=== PATIENT | male | born 1960 | race Hispanic/Latino ===

== ENCOUNTER 2017-07-15 11:04 | Observation (INO) | payer OTHER, BC ==
[2017-07-15 11:19] VITALS: BMI 26.9
[2017-07-15] MEDS ORDERED: Tdap Vaccine 0.5 ml Vial (10-64 yrs) IM ONE ×2 (13:58→15:16)
[2017-07-15] MEDS ORDERED: Bacitracin OINT 15GM TOP STA (14:30)
--- NOTE | 2017-07-15 14:53 | RAD ---
PROCEDURE: Right Hand Radiographs. HISTORY: s/p fall COMPARISON: None. FINDINGS: BONES: Bone alignment and mineralization are normal. There is no acute displaced fracture or bone destruction. JOINTS: Normal. No osteoarthritic changes. SOFT TISSUES: Normal. OTHER FINDINGS: None. IMPRESSION: No acute fracture or dislocation.
--- NOTE | 2017-07-15 15:23 | ED PDOC ---
HPI: Trauma/Fall - HPI Time Seen by Provider: 07/15/17 13:36 Chief Complaint (Nursing): Trauma Chief Complaint (Provider): Facial Injury History Per: Patient History/Exam Limitations: no limitations Onset/Duration Of Symptoms: Hrs Injury Occurred (Timing): Hours Ago: (9:00 pm the night prior to ED arrival) Associated Symptoms: denies: Dizziness, LOC Additional Complaint(s): 57 y/o male presents to the ED with a facial injury s/p fall. Patient was intoxicated when he tripped over a curb at 9:00 pm last night when he fell injuring his facial area and right hand. He complains the pain to his right hand feels like it is "throbbing" and rates it a 5/10 associated with swelling and bruising. Patient also notes deformity to his right third digit. He denies taking any pain medications or blood thinners. Denies LOC, nausea, vomiting, vision change, facial pain, headache, dizziness, abdominal pain, CP, or SOB. Of note, patient is right hand dominant and drinks daily. PMD: none provided - Fall Fall:Prior To Injury: Tripped (over curb while under EtOH influence) Past Medical History Reviewed: Historical Data, Nursing Documentation, Vital Signs Vital Signs: Last Vital Signs Temp 100.3 F H 07/15/17 11:17 Pulse 127 H 07/15/17 11:17 Resp BP 162/90 H 07/15/17 11:17 Pulse Ox 98 07/15/17 11:17 - Medical History PMH: No Chronic Diseases - Surgical History Surgical History: No Surg Hx - Family History Family History: States: No Known Family Hx - Social History Current smoker - smoking cessation education provided: No Ex-Smoker (has not smoked in the last 12 months): No Alcohol: > 2 Drinks/Day Drugs: Denies - Immunization History Hx Tetanus Toxoid Vaccination: No (unknown) - Home Medications Home Medications: Ambulatory Orders Medication Instructions Recorded No Known Home Med 07/15/17 - Allergies Allergies/Adverse Reactions: Allergies Allergy/AdvReac Type Severity Reaction Status Date / Time Penicillins Allergy RASH Verified 07/15/17 12:25 Review of Systems ROS Statement: Except As Marked, All Systems Reviewed And Found Negative Constitutional: Negative for: Other (facial pain) Eyes: Negative for: Vision Change Cardiovascular: Negative for: Chest Pain Respiratory: Negative for: Shortness of Breath Gastrointestinal: Negative for: Nausea, Vomiting, Abdominal Pain Musculoskeletal: Positive for: Hand Pain (right hand injury w/ deformity to the right third digit), Other (right hand injury w/ deformity to right third digit associated with swelling and bruising) Skin: Positive for: Other (facial abrasions due to injury) Neurological: Negative for: Headache, Dizziness, Other (LOC) Physical Exam - Reviewed Nursing Documentation Reviewed: Yes Vital Signs Reviewed: Yes - Physical Exam Appears: Positive for: Well (resting comfortably), Non-toxic, No Acute Distress Head Exam: Positive for: ATRAUMATIC, NORMAL INSPECTION, NORMOCEPHALIC Skin: Negative for: Normal Color (abrasion to nasal bridge and right cheek, superficial with no active bleeding, no surrounding ecchymosis) Eye Exam: Positive for: Normal appearance (TMJ full ROM), EOMI (intact and painless), PERRL (pupils are reactive). Negative for: Periorbital swelling, Periorbital tenderness, Other (no sinus tenderness) ENT: Positive for: Normal ENT Inspection, TM Is/Are (non-bulding, non- erythematous, no hemotympanum). Negative for: Other (no tenderness or swelling to nasal bridge or right cheek, dentition is poor throughout, intact and non- tender) Neck: Positive for: Normal Cardiovascular/Chest: Positive for: Regular Rate, Rhythm. Negative for: Murmur Respiratory: Positive for: Normal Breath Sounds. Negative for: Respiratory Distress Gastrointestinal/Abdominal: Positive for: Normal Exam, Soft. Negative for: Tenderness Extremity: Positive for: Tenderness (to proximal right 3rd and 4th MCPs/ proximal phalanx with 1cm x .5cm horizontal, superficial skin avulsion to the to palmar aspect of the right 4th PIP; 1cm irregular, horizontal laceration to palmar aspect of right 3rd PIP with active bleeding and surrounding ecchymosis) , Deformity (at the PIP righ third digit), Other (cannot flex finger, diffused ecchymosis to the palm and manriquez aspect of the right third digit). Negative for: Normal ROM Neurologic/Psych: Positive for: Alert, Oriented (x3), Cerebellar Tests (normal) . Negative for: Motor/Sensory Deficits, Facial Droop - Laboratory Results Result Diagrams: 07/15/17 18:14 07/15/17 18:14 - ECG O2 Sat by Pulse Oximetry: 98 (RA) Pulse Ox Interpretation: Normal Medical Decision Making Medical Decision Making: Time: 11:17 Impression: Finger dislocation, facial abrasions s/p fall due to EtOH abuse Initial Plan: * CAT Scan of head w/o contrast * CAT Scan of maxillofacial * Right hand x-ray * Bacitracin Ointment 1 application * Lidocaine 3 ml * Tetanus Shot Right hand x-ray results showed dislocation of the third PIP with no fracture. Upon re-evaluation patient complained of right sided facial pain. A CT scan of the head and maxillofacial w/o contrast ordered. Official XR read of Right Hand: There is dorsal subluxation of the proximal interphalangeal joint of the 3rd digit. There is diffuse soft tissue swelling in the 3rd digit. No acute fracture. [ Yolanda Jack MD at 07/15/2017 15:29:09 ] Digit block to Right 3rd digit performed by Josh HOWARD. PIP dislocation reduced by Dr Byrd, See procedure note below. Repeat hand XRs ordered to confirm reduction. Head CT: PROCEDURE: CT HEAD WITHOUT CONTRAST. HISTORY: s/p fall COMPARISON: None available. TECHNIQUE: Axial computed tomography images were obtained through the head/brain without intravenous contrast. Coronal and sagittal reconstructed images. Radiation dose: Total exam DLP = 1333.36 mGy-cm. This CT exam was performed using one or more of the following dose reduction techniques: Automated exposure control, adjustment of the mA and/or kV according to patient size, and/or use of iterative reconstruction technique. FINDINGS: HEMORRHAGE: Subarachnoid hemorrhage, acute identified high convexity sulci on right. BRAIN: No mass effect or edema. No atrophy or chronic microvascular ischemic changes. VENTRICLES: Unremarkable. No hydrocephalus. CALVARIUM: Unremarkable. PARANASAL SINUSES: Unremarkable as visualized. No significant inflammatory changes. MASTOID AIR CELLS: Unremarkable as visualized. No inflammatory changes. OTHER FINDINGS: Frontal contusion confined to the soft tissues at the level of the maxillary sinuses right greater left without underlying calvarial or adjacent intracranial abnormality. IMPRESSION: Acute subarachnoid hemorrhage likely posttraumatic neck limited to the sulci about the right convex. Bifrontal soft tissue injury/ contusion. Communication of results: I discussed findings directly with the physician involved in the care and management of the patient's 17:24. . The findings communicated to Dr. Hermelindo Byrd Maxillofacial CT: PROCEDURE: CT MAXILLOFACIAL BONES WITHOUT CONTRAST HISTORY: s/p fall COMPARISON: July 15, 2017. CT head. TECHNIQUE: Contiguous axial CT images of the maxillofacial bones were obtained. Coronal and sagittal reformats were generated. Radiation dose: Total exam DLP = 716.53 mGy-cm. This CT exam was performed using one or more of the following dose reduction techniques: Automated exposure control, adjustment of the mA and/or kV according to patient size, and/or use of iterative reconstruction technique. FINDINGS: NASAL BONES: Unremarkable. ORBITS: Unremarkable. PARANASAL SINUSES/ MASTOIDS: Clear. MAXILLA: Unremarkable. MANDIBLE/ TEMPOROMANDIBULAR JOINTS: Unremarkable. SKULL BASE: Unremarkable. TEMPORAL BONES: Middle ears and mastoid grossly unremarkable. OTHER FINDINGS: Frontal soft tissue contusion without underlying calvarial, sinus or adjacent parenchymal abnormality. Subarachnoid hemorrhage identified on the concurrent CT scan is not apparent on this examination. IMPRESSION: Soft tissue injury/ contusion right frontal region without calvarial or underlying visible intracranial abnormality. Dr Byrd spoke with Dr Nguyen (neurosurgery engineer/conductor) recommends repeat CT in AM. Likely no intervention needed. Dr Byrd discussed case with Dr Coreas (medicine engineer/conductor), who is agreeable to admission on telemetry. Arrangements made for admission. Cervical CT ordered. IV access established. CBC, CMP, PT/PTT ordered. Repeat HR: 115 Repeat BP: 153/97 Repeat Hand XR s/p reduction PROCEDURE: Right Hand Radiographs. Will HISTORY: confirm reduction of right 3rd pip dislocation COMPARISON: July 15, 2017. FINDINGS: BONES: Normal. No fracture. JOINTS: NormalAnatomic alignment is returned to the previously dislocated proximal interphalangeal joint 3rd digit. All. No osteoarthritic changes. SOFT TISSUES: Soft tissue swelling again identified 3rd digit. OTHER FINDINGS: None. IMPRESSION: Anatomic alignment/satisfactory reduction proximal interphalangeal dislocation right 3rd digit 1840 Suture repair performed by Josh HOWARD. See procedure note. 1950 Labs reviewed, elevation of AST and ALT likely alcohol induced as patient with no abdominal complaints. - Scribe Attestation: Documented by Jc Morse acting as a scribe for Gardenia Moreno PA-C. Scribyahir Attestation: All medical record entries made by the Scribe were at my direction and personally dictated by me. I have reviewed the chart and agree that the record accurately reflects my personal performance of the history, physical exam, medical decision making, and the department course for this patient. I have also personally directed, reviewed, and agree with the discharge instructions and disposition. Procedures - Time-Out Type of Procedure: PIP Reduction Site of Procedure: R 3rd Digit - Joint Reduction Conscious Sedation: No Reduction Attempts: 2 Pre-Procedure NV Exam: Yes (intact) Post Joint Reduction Film: NV intact Progress: Reduced by Dr Byrd after digit block performed by Josh HOWARD with 3mL Lidocaine 1% without epinephrine. Placed in aluminum finger splint immediately following procedure. Disposition - Clinical Impression Clinical Impression: Dislocation of finger PIP joint, Subarachnoid hemorrhage, Fall, Facial abrasion , Contusion - Patient ED Disposition Is Patient to be Admitted: Yes Counseled Patient/Family Regarding: Studies Performed, Diagnosis, Need For Followup, Rx Given - Disposition Disposition Time: 17:42 Condition: FAIR - Pt Status Changed To: Hospital Disposition Of: Inpatient (to telemetry under the care of Dr Coreas) - Admit Certification Admit to Inpatient:: After my assessment, the patient will require hospitalization for at least two midnights. This is because of the severity of symptoms shown, intensity of services needed, and/or the medical risk in this patient being treated as an outpatient. - POA Present On Arrival: Falls Or Trauma Procedure: Wound Repair - Time Out Time Out: Site verified, Patient ID confirmed - Procedure Procedure: Wound Repair: Laceration repair - Consent Obtained Consent obtained: Verbal - Performed by Performed by: Mid-level Provider (Josh HOWARD) - Location Finger:: Middle Toe:: Right Shape:: Linear, Stellate Dimensions Length cm: 1.5 Depth:: Epidermis - Anesthetic Technique Anesthetic Technique: Local Local/Regional Anesthetic:: Lidocaine 1% (2cc) - Wound Examination Wound Examination:: Joint Involvement - Debris Debris:: None - Irrigated Irrigated with ml of normal saline: 30 - Complexity Complexity:: Simple (one layer) - Wound repair method Sutures:: # (6), Size (5-0 monocryl) - Complications Complications: None - Patient tolerated procedure Patient Tolerated Procedure:: Well (Bacitracin, telfa, and aluminum finger splint with cling applied.)
[2017-07-15] MEDS ORDERED: Lidocaine 1% Inj (20ml) IJ STA (15:24)
[2017-07-15] MEDS ORDERED: Bacitracin Ointment 30 GM TUBE ONE (15:31)
[2017-07-15] MEDS ORDERED: Lidocaine 1% Inj (20ml) ONE (16:00)
[2017-07-15] MEDS ORDERED: Clindamycin ORAL SUSP 75 MG/5 ML PO STA (16:21)
--- NOTE | 2017-07-15 17:26 | CT ---
PROCEDURE: CT HEAD WITHOUT CONTRAST. HISTORY: s/p fall COMPARISON: None available. TECHNIQUE: Axial computed tomography images were obtained through the head/brain without intravenous contrast. Coronal and sagittal reconstructed images. Radiation dose: Total exam DLP = 1333.36 mGy-cm. This CT exam was performed using one or more of the following dose reduction techniques: Automated exposure control, adjustment of the mA and/or kV according to patient size, and/or use of iterative reconstruction technique. FINDINGS: HEMORRHAGE: Subarachnoid hemorrhage, acute identified high convexity sulci on right. BRAIN: No mass effect or edema. No atrophy or chronic microvascular ischemic changes. VENTRICLES: Unremarkable. No hydrocephalus. CALVARIUM: Unremarkable. PARANASAL SINUSES: Unremarkable as visualized. No significant inflammatory changes. MASTOID AIR CELLS: Unremarkable as visualized. No inflammatory changes. OTHER FINDINGS: Frontal contusion confined to the soft tissues at the level of the maxillary sinuses right greater left without underlying calvarial or adjacent intracranial abnormality. IMPRESSION: Acute subarachnoid hemorrhage likely posttraumatic neck limited to the sulci about the right convex. Bifrontal soft tissue injury/ contusion. Communication of results: I discussed findings directly with the physician involved in the care and management of the patient's 17:24. . The findings communicated to Dr. Hermelindo yBrd
--- NOTE | 2017-07-15 17:29 | CT ---
PROCEDURE: CT MAXILLOFACIAL BONES WITHOUT CONTRAST HISTORY: s/p fall COMPARISON: July 15, 2017. CT head. TECHNIQUE: Contiguous axial CT images of the maxillofacial bones were obtained. Coronal and sagittal reformats were generated. Radiation dose: Total exam DLP = 716.53 mGy-cm. This CT exam was performed using one or more of the following dose reduction techniques: Automated exposure control, adjustment of the mA and/or kV according to patient size, and/or use of iterative reconstruction technique. FINDINGS: NASAL BONES: Unremarkable. ORBITS: Unremarkable. PARANASAL SINUSES/ MASTOIDS: Clear. MAXILLA: Unremarkable. MANDIBLE/ TEMPOROMANDIBULAR JOINTS: Unremarkable. SKULL BASE: Unremarkable. TEMPORAL BONES: Middle ears and mastoid grossly unremarkable. OTHER FINDINGS: Frontal soft tissue contusion without underlying calvarial, sinus or adjacent parenchymal abnormality. Subarachnoid hemorrhage identified on the concurrent CT scan is not apparent on this examination. IMPRESSION: Soft tissue injury/ contusion right frontal region without calvarial or underlying visible intracranial abnormality.
--- NOTE | 2017-07-15 18:17 | RAD ---
PROCEDURE: Right Hand Radiographs. Will HISTORY: confirm reduction of right 3rd pip dislocation COMPARISON: July 15, 2017. FINDINGS: BONES: Normal. No fracture. JOINTS: NormalAnatomic alignment is returned to the previously dislocated proximal interphalangeal joint 3rd digit. All. No osteoarthritic changes. SOFT TISSUES: Soft tissue swelling again identified 3rd digit. OTHER FINDINGS: None. IMPRESSION: Anatomic alignment/satisfactory reduction proximal interphalangeal dislocation right 3rd digit
[2017-07-15 18:26] LABS: PARTIAL THROMBOPLASTIN TIME 33.5 Seconds (25.6-37.1); PROTHROMBIN TIME 11.5 Seconds (9.8-13.1)
[2017-07-15 18:27] LABS: ALB/GLOB RATIO 1.3 (1.0-2.1); ALBUMIN 4.9 g/dL (3.5-5.0); ALT/SGPT 219 U/L (21-72); AST/SGOT 111 U/L (17-59); BLOOD UREA NITROGEN 15 mg/dl (9-20); CALCIUM 9.7 mg/dL (8.4-10.2); GFR AFRICAN-AMERICAN > 60; GFR NON-AFRICAN AMERICAN > 60
[2017-07-15 19:12] LABS: BASO # 0.1 K/uL (0.0-0.2); BASO % 0.8 % (0.0-2.0); EOS % 0.3 % (0.0-4.0); HEMOGLOBIN 16.5 g/dL (12.0-18.0); LYMPH # 1.6 K/uL (1.0-4.3); LYMPH % 21.3 % (20.0-40.0); MEAN CELL VOLUME 91.3 fl (80.0-94.0); MEAN CORPUSCULAR HEMOGLOBIN 33.4 pg (27.0-31.0); MEAN PLATELET VOLUME 6.9 fl (7.2-11.7); MONO # 0.6 K/uL (0.0-0.8); NEUT # 5.1 K/uL (1.8-7.0); NEUT % 69.6 % (50.0-75.0); NRBC % 0.2 % (0.0-0.0); RBC 4.94 Mil/uL (4.40-5.90); WHITE BLOOD COUNT 7.4 K/uL (4.8-10.8)
[2017-07-15 19:15] LABS: MEAN CORPUSCULAR HGB CONC 36.6 g/dL (33.0-37.0)
--- NOTE | 2017-07-15 20:25 | CT ---
EXAM: CT Cervical Spine Without Intravenous Contrast CLINICAL HISTORY: 57 years old, male; Injury or trauma; Fall; Initial encounter; Blunt trauma; Injury date: 07-14-2017; Injury details: Tripped off curb; Additional info: Trauma R/O FX TECHNIQUE: Axial computed tomography images of the cervical spine without intravenous contrast. All CT scans at this facility use one or more dose reduction techniques, viz.: automated exposure control; ma/kV adjustment per patient size (including targeted exams where dose is matched to indication; i.e. head); or iterative reconstruction technique. Coronal and sagittal reformatted images were created and reviewed. COMPARISON: No relevant prior studies available. FINDINGS: Vertebrae: No acute fracture. Discs/spinal canal/neural foramina: Early degenerative disc disease within mid cervical spine. Mild degenerative disc disease within lower cervical spine. Mild indentation thecal sac/cord lower cervical spine. Neuroforaminal narrowing within lower cervical spine. Soft tissues: Unremarkable. Vasculature: Mild atherosclerotic disease of carotid arteries. Lung apices: Unremarkable as visualized. IMPRESSION: 1. No fracture. 2. Incidental/non-acute findings are described above.
[2017-07-16 05:52] LABS: HEMOGLOBIN 14.9 g/dL (12.0-18.0); MEAN CELL VOLUME 91.6 fl (80.0-94.0); MEAN CORPUSCULAR HEMOGLOBIN 32.7 pg (27.0-31.0); MEAN CORPUSCULAR HGB CONC 35.7 g/dL (33.0-37.0); RBC 4.57 Mil/uL (4.40-5.90); WHITE BLOOD COUNT 6.6 K/uL (4.8-10.8)
[2017-07-16 06:00] LABS: INR 1.1 (0.9-1.2); PROTHROMBIN TIME 12.4 Seconds (9.8-13.1)
[2017-07-16 08:02] VITALS: RESP 20; O2SAT 98
--- NOTE | 2017-07-16 08:34 | CP.PCM.HP ---
History of Present Illness - History of Present Illness History of Present Illness: 57 YR OLD MALE ,CHRONIC ALCOHOLIC WHO SUSTAINED A FALL WHILE DRUNK AND WAS SEEN IN ER WITH FACIAL,HEAD AND R HAND TRAUMA.CT SCAN OF HEAD WAS REMARKABLE FOR SMALL SUBARACHNOID HEMORRHAGE AND HE HAD A R HAND LACERATION REPAIRED.THE PT IS ALERT AND ORIENTED X [address] AL[address]HOL USE. CT SCAN OF HEAD REVIEWED BY NEUROSURGERY--REPEAT SCAN REQUESTED THIS AM--PT TO BE D/[facility] AL[facility]ERTO AND FOLLOWED UP OUT PT IS SUBARACHNOID HEMORRHAGE IS STABLE. Present on Admission - Present on Admission Any Indicators Present on Admission: No Past Patient History - Past Medical History & Family History Past Medical History?: No - Past Social History Smoking Status: Former Smoker - CARDIAC Hx Cardiac Disorders: No - PULMONARY Hx Respiratory Disorders: No - NEUROLOGICAL Hx Neurological Disorder: No - HEENT Hx HEENT Problems: No - RENAL Hx Chronic Kidney Disease: No - ENDOCRINE/METABOLIC Hx Endocrine Disorders: No - HEMATOLOGICAL/ONCOLOGICAL Hx Blood Disorders: No - INTEGUMENTARY Hx Dermatological Problems: No - MUSCULOSKELETAL/RHEUMATOLOGICAL Hx Musculoskeletal Disorders: No Hx Falls: No (admission diagnosis) - GASTROINTESTINAL Hx Gastrointestinal Disorders: No - GENITOURINARY/GYNECOLOGICAL Hx Genitourinary Disorders: No - PSYCHIATRIC Hx Psychophysiologic Disorder: No Hx Substance Use: No - SURGICAL HISTORY Hx Surgeries: No - ANESTHESIA Hx Anesthesia: No Meds Allergies/Adverse Reactions: Allergies Allergy/AdvReac Type Severity Reaction Status Date / Time Penicillins Allergy RASH Verified 07/15/17 12:25 Physical Exam - Constitutional Appears: Well, No Acute Distress - Head Exam Head Exam: NORMAL INSPECTION, NORMOCEPHALIC Additional comments: SUPERFICIAL FACIAL ABRASIONS - Eye Exam Eye Exam: EOMI, Normal appearance, PERRL Pupil Exam: NORMAL ACCOMODATION, PERRL - ENT Exam ENT Exam: Mucous Membranes Moist, Normal Exam - Neck Exam Neck exam: Positive for: Normal Inspection - Respiratory Exam Respiratory Exam: Clear to Auscultation Bilateral, NORMAL BREATHING PATTERN - Cardiovascular Exam Cardiovascular Exam: REGULAR RHYTHM - GI/Abdominal Exam GI & Abdominal Exam: Normal Bowel Sounds, Soft. absent: Tenderness - Rectal Exam Rectal Exam: NORMAL INSPECTION - Extremities Exam Additional comments: DRY SURGICAL DRESSING OVER R HAND - Back Exam Back exam: NORMAL INSPECTION - Neurological Exam Neurological exam: Alert, CN II-XII Intact, Normal Gait, Oriented x3, Reflexes Normal - Psychiatric Exam Psychiatric exam: Normal Affect, Normal Mood - Skin Skin Exam: Dry, Intact, Normal Color, Warm Results - Vital Signs Recent Vital Signs: Last Vital Signs Temp 98.3 F 07/16/17 08:02 Pulse 103 H 07/16/17 08:02 Resp 20 07/16/17 08:02 BP 150/74 07/16/17 08:02 Pulse Ox 98 07/16/17 08:02 - Labs Result Diagrams: 07/16/17 04:25 07/15/17 18:14 Labs: Laboratory Results - last 24 hr 07/15/17 07/15/17 07/15/17 18:14 18:14 18:14 WBC 7.4 RBC 4.94 Hgb 16.5 Hct 45.1 MCV 91.3 MCH 33.4 H MCHC 36.6 RDW 13.0 Plt Count 247 MPV 6.9 L Neut % (Auto) 69.6 Lymph % (Auto) 21.3 Elbert % (Auto) 8.0 Eos % (Auto) 0.3 Baso % (Auto) 0.8 Neut # (Auto) 5.1 Lymph # (Auto) 1.6 Elbert # (Auto) 0.6 Eos # (Auto) 0.0 Baso # (Auto) 0.1 PT 11.5 INR 1.0 APTT 33.5 Sodium 144 Potassium 3.7 Chloride 102 Carbon Dioxide 22 Anion Gap 24 H BUN 15 Creatinine 0.8 Est GFR ( Amer) > 60 Est GFR (Non-Af Amer) > 60 Random Glucose 135 H Calcium 9.7 Total Bilirubin 1.2 AST 111 H ALT 219 H Alkaline Phosphatase 69 Total Protein 8.7 H Albumin 4.9 Globulin 3.8 Albumin/Globulin Ratio 1.3 07/16/17 07/16/17 04:25 04:25 WBC 6.6 RBC 4.57 Hgb 14.9 Hct 41.8 MCV 91.6 MCH 32.7 H MCHC 35.7 RDW 13.0 Plt Count 205 MPV Neut % (Auto) Lymph % (Auto) Elbert % (Auto) Eos % (Auto) Baso % (Auto) Neut # (Auto) Lymph # (Auto) Elbert # (Auto) Eos # (Auto) Baso # (Auto) PT 12.4 INR 1.1 APTT Sodium Potassium Chloride Carbon Dioxide Anion Gap BUN Creatinine Est GFR ( Amer) Est GFR (Non-Af Amer) Random Glucose Calcium Total Bilirubin AST ALT Alkaline Phosphatase Total Protein Albumin Globulin Albumin/Globulin Ratio Assessment & Plan - Assessment and Plan (Free Text) Assessment: ACCIDENTAL FALL WITH MULTIPLE TRAUMA SUBARACHNOID HEMORRHAGE CHRONIC ALCOHOLISM Plan: AWAIT REPEAT CT SCAN OF HEAD D/C HOME IF SUBARACHNOID HEMORRHAGE IS STABLE - Date & Time Date: 07/16/17 Time: 08:37
--- NOTE | 2017-07-16 10:35 | CT ---
PROCEDURE: CT HEAD WITHOUT CONTRAST. HISTORY: s/p fall COMPARISON: Noncontrast head CT 07/15/2017. TECHNIQUE: Axial computed tomography images were obtained through the head/brain without intravenous contrast. Radiation dose: Total exam DLP = 995.09 mGy-cm. This CT exam was performed using one or more of the following dose reduction techniques: Automated exposure control, adjustment of the mA and/or kV according to patient size, and/or use of iterative reconstruction technique. FINDINGS: HEMORRHAGE: Trace subarachnoid hemorrhage and posterior right frontal sulcus is appreciated near the vertex slightly diminished in density with. No interval increase in hemorrhage here and no new hemorrhage is seen extrinsic to this location. BRAIN: Remaining serna white matter density is normal above and below the tentorium and stable in the interval. VENTRICLES: Unremarkable. No hydrocephalus. CALVARIUM: Unremarkable. PARANASAL SINUSES: Unremarkable as visualized. No significant inflammatory changes. MASTOID AIR CELLS: Unremarkable as visualized. No inflammatory changes. OTHER FINDINGS: Right frontal soft tissue contusion/edema reiterated. IMPRESSION: Stable trace subarachnoid hemorrhage within solitary sulcus of the right frontal vertex. No increased hemorrhage related to this area. No interval extrinsic intracranial hemorrhage appreciable otherwise either.
--- NOTE | 2017-07-16 12:21 | CP.PCM.PN ---
Subjective - Date & Time of Evaluation Date of Evaluation: 07/16/17 Time of Evaluation: 12:20 - Subjective Subjective: small traumatic sah seen on CT after fal several days ago repeat shows slight decreas in blood no surgical indications clear for d/c home when otherwise medically clear Objective - Vital Signs/Intake and Output Vital Signs (last 24 hours): Temp Pulse Resp BP Pulse Ox 98.3 F 103 H 20 150/74 98 07/16/17 08:02 07/16/17 08:02 07/16/17 08:02 07/16/17 08:02 07/16/17 08:02 - Medications Medications: Current Medications Acetaminophen (Tylenol 325mg Tab) 650 mg PO Q4 PRN PRN Reason: Pain, Mild (1-3) - Labs Labs: 07/16/17 04:25 07/15/17 18:14 PT 12.4 Seconds (9.8-13.1) 07/16/17 04:25 INR 1.1 (0.9-1.2) 07/16/17 04:25 APTT 33.5 Seconds (25.6-37.1) 07/15/17 18:14
[2017-07-16 12:22] VITALS: BP 145/75; PULSE 100; TEMP 98.2
== END 2017-07-16 14:26 | disposition home or self-care (01) ==
LOC: H.ER 11:04 → H.ERHOLD 17:42 → INTOOBSV 17:42 → H.TEL 21:51
PROVIDERS: ADMIT Internal Medicine Pulmonary Disease; ATTEND Internal Medicine Pulmonary Disease
DX: S06.6X0A Traumatic subarachnoid hemorrhage without loss of consciousness, initial encounter (principal); S63.272A Dislocation of unspecified interphalangeal joint of right middle finger, initial encounter; F10.20 Alcohol dependence, uncomplicated; Y93.9 Activity, unspecified; W10.1XXA Fall (on)(from) sidewalk curb, initial encounter; Z87.891 Personal history of nicotine dependence; S61.212A Laceration without foreign body of right middle finger without damage to nail, initial encounter; Z88.0 Allergy status to penicillin; Z23 Encounter for immunization
CPT/HCPCS: 12001; 26775; 36415; 70450; 70486; 72125; 73130; 80053; 85025; 85027; 85610; 85730; 90471; 90715; 99285; G0378